=== PATIENT | male | born 1990 | race Caucasian/White ===

== ENCOUNTER 2016-07-26 17:03 | Emergency (ER) | payer OTHER ==
[2016-07-26 17:06] VITALS: BMI 28.8
[2016-07-26] MEDS ORDERED: Oxycodone/Acetaminophen 5/325 mg Tab PO STA (17:20)
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
[2016-07-26 17:43] VITALS: RESP 18; TEMP 98.3
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
[2016-07-26 19:12] VITALS: BP 102/71; PULSE 88; O2SAT 100
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
== END 2016-07-26 19:14 | disposition home or self-care (01) ==
LOC: ED 17:03
DX: S00.532A Contusion of oral cavity, initial encounter (principal); S50.312A Abrasion of left elbow, initial encounter; S50.311A Abrasion of right elbow, initial encounter; Y04.0XXA Assault by unarmed brawl or fight, initial encounter; Y92.89 Other specified places as the place of occurrence of the external cause